=== PATIENT | female | born 1955 | race Caucasian/White ===

== ENCOUNTER 2016-08-23 14:51 | Outpatient (CLI) | payer OTHER ==
--- NOTE | 2016-08-23 16:44 | Mammography Report ---
BILATERAL DIGITAL AUGMENTED SCREENING MAMMOGRAM with CAD: 08/23/16 14:51:00 CLINICAL: Routine screening. COMPARISON:02/24/15 FINDINGS: Screening views with and without implant displacement demonstrate almost entirely fatty breasts. No mass, architectural distortion or suspicious calcifications. Intact subpectoral implants. IMPRESSION: No mammographic evidence of malignancy. BI-RADS CATEGORY: 2 -- Benign RECOMMENDATION: Routine mammographic screening in one year. ACR BI-RADS MAMMOGRAPHIC CODES: 0 = Needs additional imaging evaluation; 1 = Negative; 2 = Benign; 3 = Probably benign; 4 = Suspicious; 5 = Malignant; 6 = Known biopsy-proven malignancy COMMENT: 1. Dense breast tissue, i.e., adenosis, fibrocystic changes, etc., may obscure an underlying neoplasm. 2. Approximately 10% of cancers are not detected with mammography. 3. A negative mammography report should not delay biopsy if a clinically suspicious mass is present. COMMENT: Patient follow-up letters are generated via our [employer] application.
== END 2016-08-23 14:52 | disposition home or self-care (01) ==
LOC: SPVWC 14:51
PROVIDERS: ATTEND Family Medicine
DX: Z12.31 Encounter for screening mammogram for malignant neoplasm of breast (principal); Z98.82 Breast implant status
CPT/HCPCS: 77067; G0202

== ENCOUNTER 2017-09-05 11:02 | Outpatient (CLI) | payer OTHER ==
--- NOTE | 2017-09-05 14:57 | Mammography Report ---
BILATERAL DIGITAL AUGMENTED SCREENING MAMMOGRAM with CAD: 09/05/17 11:02:00 CLINICAL: Routine screening. COMPARISON:08/23/16 FINDINGS: Screening views with and without implant displacement demonstrate mostly fatty breasts. No mass, architectural distortion or suspicious calcifications. Intact subpectoral implants. IMPRESSION: No mammographic evidence of malignancy. BI-RADS CATEGORY: 2 -- Benign RECOMMENDATION: Routine mammographic screening in one year. ACR BI-RADS MAMMOGRAPHIC CODES: 0 = Needs additional imaging evaluation; 1 = Negative; 2 = Benign; 3 = Probably benign; 4 = Suspicious; 5 = Malignant; 6 = Known biopsy-proven malignancy COMMENT: 1. Dense breast tissue, i.e., adenosis, fibrocystic changes, etc., may obscure an underlying neoplasm. 2. Approximately 10% of cancers are not detected with mammography. 3. A negative mammography report should not delay biopsy if a clinically suspicious mass is present. COMMENT: Patient follow-up letters are generated via our [employer] application.
== END 2017-09-05 11:03 | disposition home or self-care (01) ==
LOC: SPVWC 11:02
PROVIDERS: ATTEND Family Medicine
DX: Z12.31 Encounter for screening mammogram for malignant neoplasm of breast (principal)
CPT/HCPCS: 77067

== ENCOUNTER 2018-09-11 14:19 | Outpatient (CLI) | payer OTHER ==
--- NOTE | 2018-09-11 16:31 | Mammography Report ---
BILATERAL DIGITAL SCREENING MAMMOGRAM WITH CAD AND IMPLANT-DISPLACED VIEWS HISTORY: SCREENING COMPARISON: 09/05/2017 FINDINGS: Breast Density: Predominantly fatty Digital standard and implant-displaced CC and MLO views demonstrate no mammographic evidence of malig ronny. Bilateral subpectoral saline implants are in place. IMPRESSION No mammographic evidence of malignancy. If the clinical examination remains stable, recommend bilate ral screening mammogram in approximately one year. BIRADS 2: Benign According to the [employer], yearly mammograms are recommended starting at age 40 and continuing as long as a woman is in good health. Clinical Breast Exams should be part of a period ic health exam-about every 3 years for women in their 20s and 30s and every year for women 40 and ove r. Breast self exam is an option for women starting in their 20s. Any breast change noted on a breast self exam should be reported promptly to the patient's healthcare provider. Breast MRI is recommende d for women with an approximately 20-25% or greater lifetime risk of breast cancer, including women w ith a strong family history of breast or ovarian cancer and women who have been treated for Hodgkin's disease. A negative Mammography report should not discourage follow up or biopsy of a clinically significant f inding and/or abnormality. Dense breast tissue may obscure small neoplasms. This examination was interpreted with the benefit of Computer-aided Detection analysis. The patient will be entered into a reminder system with a target due date for the next screening mamm ogram. Signer Name: Curt Brewer MD Signed: 09/11/2018 4:26 PM Workstation Name: [id number]
== END 2018-09-11 14:20 | disposition home or self-care (01) ==
LOC: SPVWC 14:19
PROVIDERS: ATTEND Family Medicine
DX: Z12.31 Encounter for screening mammogram for malignant neoplasm of breast (principal)
CPT/HCPCS: 77067

== ENCOUNTER 2018-10-28 11:19 | Emergency (ER) | payer OTHER ==
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
[2018-10-28] MEDS ORDERED: DILAUDID IV ONE (11:53)
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
[2018-10-28 12:58] VITALS: BP 110/72
[2018-10-28] MEDS ORDERED: ZOFRAN ODT ONE (13:30)
[2018-10-28] MEDS ORDERED: ZOFRAN ODT PO ONE (13:32)
== END 2018-10-28 13:37 | disposition home or self-care (01) ==
LOC: ED 11:19
DX: S82.831A Other fracture of upper and lower end of right fibula, initial encounter for closed fracture (principal); S82.301A Unspecified fracture of lower end of right tibia, initial encounter for closed fracture; Z79.899 Other long term (current) drug therapy; W18.30XA Fall on same level, unspecified, initial encounter; Y93.89 Activity, other specified; Y92.89 Other specified places as the place of occurrence of the external cause; Y99.8 Other external cause status
CPT/HCPCS: 29515; 73610; 96374; 99284; J1170; Q0162

== ENCOUNTER 2018-11-08 08:17 | Day surgery (SDC) | payer OTHER ==
[~2018-11-08 08:17] MED LIST: ANCEF/STERILE WATER 2 GM/20 ML IV NR
[2018-11-08] MEDS ORDERED: NACL BACTERIOSTATIC INFILTRATI ONE (08:44)
[2018-11-08] MEDS ORDERED: SUBLIMAZE IV NR (09:12)
[2018-11-08] MEDS ORDERED: VERSED IV NR (09:12)
[2018-11-08] MEDS ORDERED: LACTATED RINGERS 1,000 ML IV SCH (09:13)
[2018-11-08] MEDS ORDERED: ZOFRAN IV PRN (09:18)
--- NOTE | 2018-11-08 09:18 | Anesthesia Consultation ---
Anesthesia Consult and Med Hx Date of service: 11/08/18 - Airway Anesthetic Teeth Evaluation: Good ROM Head & Neck: Adequate Mental/Hyoid Distance: Adequate Mallampati Class: Class II Intubation Access Assessment: Good - Pulmonary Exam CTA: Yes - Cardiac Exam Cardiac Exam: RRR - Pre-Operative Health Status ASA Pre-Surgery Classification: ASA1 Proposed Anesthetic Plan: General - Pulmonary Hx Smoking: No Hx Sleep Apnea: No (ISSAC PRE SCREEN LOW RISK.) - Cardiovascular System Hx Hypertension: No - Other Systems Hx Cancer: No
--- NOTE | 2018-11-08 09:18 | Anesthesia Day of Surgery ---
Anesthesia Day of Surgery - Day of Surgery Patient Examined: Yes Patient H&P Reviewed: Yes Patient is NPO: Yes
[2018-11-08] MEDS ORDERED: ZOFRAN ONE (12:30)
[2018-11-08] MEDS ORDERED: DECADRON ONE (12:30)
[2018-11-08] MEDS ORDERED: DIPRIVAN 10 MG/ML IV ONE (12:38)
[2018-11-08] MEDS ORDERED: XYLOCAINE MPF 2% ONE (12:38)
[2018-11-08] MEDS ORDERED: SUBLIMAZE ONE ×3 (12:38→14:58)
[2018-11-08] MEDS ORDERED: NEOSPORIN GU IR ONE (12:59)
[2018-11-08] MEDS: DILAUDID IV PRN ×6 (15:15→16:00)
--- NOTE | 2018-11-08 15:30 | XRay Report ---
Right tibia and fibula, 2 views INDICATION: Right tibia fracture. COMPARISON: None. IMPRESSION: 3 minutes 8 seconds of fluoroscopy time was provided by radiology during internal fixati on of a right tibial fracture by orthopedics. 4 fluoroscopic images are presented demonstrating inter nal fixation of the right tibia with intramedullary gianna and screws. There is anatomic alignment at th e distal tibial fracture site. Minimally displaced distal tibial fracture is also suspected on the l ateral view. Please correlate with the procedural report as needed. Signer Name: Chas Mayfield Jr, MD Signed: 11/08/2018 3:26 PM Workstation Name: [id number]
--- NOTE | 2018-11-08 16:25 | Procedure Note ---
Date of procedure: 11/08/18 Pre-op diagnosis: displaced right distal tib-fib fracture Post-op diagnosis: same Procedure: Closed reduction insertion of intramedullary nail right tibia Procedure The patient was brought to the OR and placed in the OR table supine following induction and intubation by anesthesia the patient's right lower extremity was prepped and draped in the usual sterile manner. A timeout procedure was done to identify the patient and the correct operative site. The leg was exsanguinated followed by inflation of the pneumatic tourniquet to 300 mmHg. The entry portal was made overlying the patella tendon was taken down sharply through skin subcutaneous and tendon using a small E retractor the entry point in the proximal tibia was palpated using a metal all the medullary canal was entered A guidewire was then inserted down the proximal tibial canal at at the fracture site. Under C-arm visualization was then positioned into the distal fragment care was taken to protect the guidewire is as distal as possible Measuring the length of the gianna a 300 mm wide 10 mm gianna was selected this was followed by reaming up to a 11 mm diameter again care was taken to maintain the appropriate alignment following this a a 10 x 300 mm intramedullary nail was inserted and a antegrade fashion down the proximal tibial shaft into the distal fragment Using the proximal alignment was G2 proximal screws were inserted to locked IM nail A ischemia next distal locking screws were inserted into the distal fragment again under C-arm visualization the alignment appeared anatomic patient's appeared to have normal rotation of the foot in relationship to the kneecap next the wound was copiously irrigated the patella tendon was closed with #1 Vicryl in a interrupted fashion the skin was closed with 3-0 Vicryl followed by application of the supplied suture device the patient tolerated the procedure there were no palpitations she was sent to postanesthesia recovery in a stable condition Anesthesia: OBED Surgeon: SARITHA DOWD Machine Hand: MONICA WARD Estimated blood loss: minimal Pathology: none Condition: stable Disposition: PACU
[2018-11-08 16:32] VITALS: BP 129/75
[2018-11-08] MEDS ORDERED: PERCOCET 5/325 PO PRN (17:04)
== END 2018-11-08 17:30 | disposition home or self-care (01) ==
LOC: OR 08:17
PROVIDERS: ATTEND Orthopaedic Surgery
DX: S82.301A Unspecified fracture of lower end of right tibia, initial encounter for closed fracture (principal); Z90.710 Acquired absence of both cervix and uterus; Z91.81 History of falling; Z98.890 Other specified postprocedural states; Y93.89 Activity, other specified; W18.39XA Other fall on same level, initial encounter; Y92.89 Other specified places as the place of occurrence of the external cause; Y99.8 Other external cause status
CPT/HCPCS: 27759; 73590; C1713; C1769; J1100; J1170; J2250; J2405; J2704; J3010; J7120; L8699

== ENCOUNTER 2019-01-22 15:00 | Outpatient (CLI) | payer OTHER ==
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
== END 2019-01-22 15:01 | disposition home or self-care (01) ==
LOC: XRAY 15:00
PROVIDERS: ATTEND Family Medicine
DX: S82.301A Unspecified fracture of lower end of right tibia, initial encounter for closed fracture (principal); X58.XXXA Exposure to other specified factors, initial encounter; Y93.89 Activity, other specified; Y92.89 Other specified places as the place of occurrence of the external cause; Y99.8 Other external cause status